=== PATIENT | male | born 1995 | race Caucasian/White ===

== ENCOUNTER 2024-04-09 10:52 | Emergency (ER) | payer OTHER, SELFPAY ==
--- NOTE | ~2024-04-09 | XR_ITS ---
EXAMINATION: XR chest 2V DATE: 04/09/2024 11:21 INDICATION: 3 days of cough TECHNIQUE: PA and lateral views of the chest were obtained. COMPARISON: Chest radiograph dated 01/07/2014 FINDINGS: Increasing retrocardiac opacities at the posterior left lower lung zone with suggestion of some bronc hial wall thickening suspicious for pneumonia. No pulmonary edema, pleural effusion or pneumothorax. The cardiomediastinal silhouette is normal. Visualized bones and soft tissues are unremarkable. IMPRESSION: 1. Mild opacity left lower lobe suspicious for which could represent atelectasis or pneumonia. Reviewed, dictated and finalized at location A. DROPPER IMPRESSION: 1. Mild opacity left lower lobe suspicious for which could represent atelectasi s or pneumonia.
[2024-04-09 10:56] VITALS: BP 138/77; PULSE 100; RESP 16; TEMP 36.6; O2SAT 100
--- NOTE | 2024-04-09 11:14 | ED.URI ---
HPI - URI/Sore Throat General Chief Complaint: Upper Respiratory Infection Stated Complaint: chest cold, cough Time Seen by Provider: 04/09/24 11:02 History of Present Illness HPI Narrative: 28-year-old male presents to the emergency department for cough and head congestion for 3 days. Patient states he began having a head cold 3 days ago, 2 days ago began developing in his chest. He reports a nonproductive cough and a cough triggered with deep inspiration. Denies otalgia, sore throat, fever, nausea, vomiting. States he has a sore throat which he attributes to coughing. He does not smoke. Reports remote history of asthma as a child. Related Data Allergies Allergy/AdvReac Type Severity Reaction Status Date / Time No Known Allergies Allergy Verified 04/09/24 10:53 Review of Systems Review of Systems: All systems reviewed & are unremarkable except as noted in HPI and below Exam Narrative: GENERAL: Well-appearing, well-nourished, and in no acute distress. HEAD: Normocephalic, atraumatic. EYES: EOMI. ENT: Nares clear, no rhinorrhea or epistaxis. Mucous membranes moist.Posterior pharynx erythematous, no tonsillar hypertrophy or exudates, uvula is midline. No trismus. No airway compromise. Bilateral TMs are goldman nonbulging with normal canals. NECK: Supple. CHEST: Clear to auscultation. No respiratory distress. Coughing on exam HEART: Regular rate and rhythm. No murmur heard. Normal peripheral pulses. EXTREMITIES: Normal range of motion. No edema. SKIN: Warm, dry, no rash. NEURO: No focal deficits. Alert and oriented x3 Course Vital Signs Vital signs: Vital Signs Temperature 97.9 F 04/09/24 10:56 Pulse Rate 100 04/09/24 10:56 Respiratory Rate 16 04/09/24 10:56 Blood Pressure 138/77 04/09/24 10:56 Pulse Oximetry 100 04/09/24 10:56 Oxygen Delivery Room Air 04/09/24 10:56 Temperature 97.9 F 04/09/24 10:56 Pulse Rate 100 04/09/24 10:56 Respiratory Rate 16 04/09/24 10:56 Blood Pressure 138/77 04/09/24 10:56 Pulse Oximetry 100 04/09/24 10:56 Oxygen Delivery Room Air 04/09/24 11:07 MDM - URI/Sore Throat MDM Narrative Medical decision making narrative: 28-year-old male presents to emergency department for cough and congestion for the past 2-3 days. Vitals are stable. He is afebrile. Exam is significant for clear lung sounds, actively coughing on exam. Posterior pharynx with some erythema, no tonsillar hypertrophy or exudates, uvula is midline. 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 Strep, COVID, flu RSV are negative. Chest x-ray shows mild opacity the left lower lung suspicious for which could represent atelectasis or pneumonia. Patient was updated on the workup. Given his presentation, will cover with pneumonia for Augmentin, azithromycin, benzonatate and albuterol inhaler. He is afebrile his oxygen is stable at 100% in no respiratory distress. Feel he is safe to be discharged home. Advised follow-up with his PCP and discuss strict ED return precautions. He is agreeable to plan verbalized understanding. Discharged in stable condition. Lab Data Labs: Lab Results 04/09/24 04/09/24 Range/Units 11:02 11:22 Influenza A (RT-PCR) Negative (Negative) Influenza B (RT-PCR) Negative (Negative) RSV (RT-PCR) Negative (Negative) SARS-CoV-2 RNA (RT-PCR) Negative (Negative) Group A Strep (PCR) Not detected (Negative) Discharge Plan Discharge Clinical Impression: CAP (community acquired pneumonia) Qualifiers: Laterality: left Lung location: lower lobe of lung Qualified Code(s): J18.9 - Pneumonia, unspecified organism Patient Disposition: Home, Self-Care Condition: Stable Instructions: Antibiotic Form, Community Acquired Pneumonia (DC) Additional Instructions: You were evaluated in the emergency department for cough and congestion. Your COVID, flu, RSV and strep test are negative. Her chest x-ray is concerning for possible pneumonia. I send antibiotics, cough medicine and an inhaler to the pharmacy, please use these as directed. Follow-up with your primary care provider in the following week. Return to the emergency department if you develop a fever 100.4, difficulty breathing, other concerning symptoms. Prescriptions: New amoxicillin-pot clavulanate 875-125 mg tablet 1 tablet PO Q12H Qty: 14 0RF albuterol sulfate 90 mcg/actuation HFA aerosol inhaler 1 inh inhalation QID PRN (Reason: shortness of breath or wheezing) Qty: 6.7 0RF azithromycin 250 mg tablet See Rx Instructions .ROUTE .COMPLEX Qty: 6 0RF Rx Instructions: For 250 mg dose pack: take 500 mg today (day 1), then 250 mg for 4 days (days 2-5) benzonatate 200 mg capsule 200 mg PO BID PRN (Reason: cough) Qty: 14 0RF Follow-up/Referrals: PHYSICIAN,PORTFOLIO MANAGER [Non-Staff] - Osbaldo Rivas MD [Physician] - 1 Day
[2024-04-09 11:41] LABS: Influenza A QL RT-PCR Negative (Negative); Influenza B QL RT-PCR Negative (Negative); RSV RNA, RT-PCR Negative (Negative); SARS-CoV-2 RNA PCR Negative (Negative)
[2024-04-09 11:50] LABS: Strep Group A RT-PCR NOT DETECTED (Negative)
--- NOTE | 2024-04-09 11:55 | PC.NURSE ---
attempted to call lab 3 times for update on pts COVID swab.
--- NOTE | 2024-04-09 12:02 | PC.NURSE ---
Spoke with Mayte from the lab about COVID swab, states she will result it now.
[2024-04-09] MEDS: AMOXICILLIN/CLAVULANATE K 875-125 MG TAB 1 TABLET PO (12:23)
[2024-04-09] MEDS: AZITHROMYCIN 250 MG TABLET 500 MG PO (12:23)
== END 2024-04-09 12:24 | disposition home or self-care (01) ==
PROVIDERS: Emergency Medicine; Emergency Provider Physician Assistant
DX: J18.9 Pneumonia, unspecified organism (principal); Z20.822 Contact with and (suspected) exposure to COVID-19
CPT/HCPCS: 71046; 87637; 87651; 99283; A9270

== ENCOUNTER 2024-08-08 20:43 | Emergency (ER) | payer OTHER, SELFPAY ==
[2024-08-08 21:04] VITALS: BP 138/77; PULSE 80; RESP 16; TEMP 36.4; O2SAT 98
--- NOTE | 2024-08-08 23:50 | PC.NURSE ---
pt to furniture removalist's assistant I am going to leave and go to a different hospital. This is insane. Pt ambulatory with steady gait to exit. no distress noted.
== END 2024-08-09 01:59 | disposition left against medical advice (07) ==
LOC: ANHED 08-09 00:02
DX: S51.852A Open bite of left forearm, initial encounter (principal); W54.0XXA Bitten by dog, initial encounter
CPT/HCPCS: 99199